=== PATIENT | female | born 1985 | race Caucasian/White ===

== ENCOUNTER 2018-09-16 21:40 | Inpatient (IN) | payer OTHER ==
[2018-09-16] MEDS ORDERED: ELECTROLYTE-148 SOLN 500 ML IV SCH ×2 (22:00→23:00)
[2018-09-16 22:44] VITALS: BMI 35.2
[2018-09-16 22:51] LABS: BASO % 0.5 % (0-2.0); HEMATOCRIT 34.4 % (32.4-45.2); HEMOGLOBIN 11.7 GM/dL (10.7-15.3); LYMPH % 12.2 % (8-40); MCH 29.3 pg (25.7-33.7); MCHC 34.1 g/dl (32.0-36.0); MEAN PLT VOLUME 7.7 fl (7.5-11.1); NEUT % 82.3 % (42.8-82.8); PLATELET COUNT 259 K/MM3 (134-434); RDW 14.4 % (11.6-15.6); WHITE BLOOD COUNT 11.6 K/mm3 (4.0-10.0)
[2018-09-16 22:56] LABS: INR 0.97 (0.83-1.09); PROTHROMBIN TIME (PATIENT) 11.4 SEC (9.7-13.0)
[2018-09-16 22:58] LABS: ACTIVATED PTT 24.2 SECONDS (25.2-36.5)
[2018-09-16 23:01] LABS: ANION GAP 12 MMOL/L (8-16); BLOOD UREA NITROGEN 10 mg/dL (7-18); CALCIUM 9.7 mg/dL (8.5-10.1); CHLORIDE 103 mmol/L (98-107); CO2 21 mmol/L (21-32); CREATININE 0.7 mg/dL (0.55-1.3); GLUCOSE,RANDOM 96 mg/dL (74-106); POTASSIUM 4.1 mmol/L (3.5-5.1); SODIUM 136 mmol/L (136-145)
[2018-09-16] MEDS ORDERED: FENTANYL/BUPIVACAINE/NS/PF - PCEA - 50 ML DISP.SYRIN EP ONE (23:03)
[2018-09-17] MEDS ORDERED: NALOXONE HCL 0.4 MG/ML VIAL IVPUSH PRN (00:17)
[2018-09-17] MEDS ORDERED: FENTANYL/BUPIVACAINE/NS/PF - PCEA - 50 ML DISP.SYRIN EP SCH (00:30)
[2018-09-17] MEDS ORDERED: DEXTROSE 5%-LACTATED RINGERS 1,000 ML IV SCH (00:45)
[2018-09-17] MEDS ORDERED: ELECTROLYTE-148 SOLN 1,000 ML IV SCH ×2 (00:45→01:00)
--- NOTE | 2018-09-17 00:45 | HP ---
Past Medical History - Admission Chief Complaint: Labor pain History of Present Illness: 33 yo @ 39 weeks gestation, EDC 09/12/18, admitted for labor pain. She had one prior and now desires a trial of labor. History Source: Patient Limitations to Obtaining History: No Limitations - Past Medical History ...: 2 ...Para: 1 ...Term: 1 ...: 0 ...Spon : 0 ...Induced : 0 ...Multiple Gestation: 0 ...LMP: 12/12/17 ... Weeks Gestation by Dates: 39.5 ...EDC by Dates: 09/18/18 ...EDC by Sono: 09/12/18 - Past Surgical History Past Surgical History: Yes: Hx Myomectomy: No Hx Transabdominal Cerclage: No - Smoking History Smoking history: Never smoked Have you smoked in the past 12 months: No - Alcohol/Substance Use Hx Alcohol Use: No History of Substance Use: reports: None - Social History Usual Living Arrangement: Yes: With Spouse History of Recent Travel: No Home Medications - Allergies Allergies/Adverse Reactions: Allergies Allergy/AdvReac Type Severity Reaction Status Date / Time Penicillins Allergy Severe Difficulty Verified 09/16/18 22:47 Breathing - Home Medications Home Medications: Ambulatory Orders Vitamins (Sjr) - 1 tab PO DAILY 12/31/13 Family Disease History - Family Disease History Family History: Unremarkable Review of Systems - Review of Systems Constitutional: reports: No Symptoms Eyes: reports: No Symptoms HENT: reports: No Symptoms Neck: reports: No Symptoms Cardiovascular: reports: No Symptoms Respiratory: reports: No Symptoms Gastrointestinal: reports: No Symptoms Genitourinary: reports: Pain Breasts: reports: No Symptoms Reported Musculoskeletal: reports: No Symptoms Integumentary: reports: No Symptoms Neurological: reports: No Symptoms Endocrine: reports: No Symptoms Hematology/Lymphatic: reports: No Symptoms Pain Intensity: 6 Physical Exam - Maternity Vital Signs: Vital Signs Temperature 97.3 F L 09/16/18 22:00 Pulse Rate 102 H 09/17/18 00:00 Respiratory Rate 20 09/17/18 00:00 Blood Pressure 128/74 09/17/18 00:00 O2 Sat by Pulse Oximetry (%) 100 09/17/18 00:00 Constitutional: Yes: Well Nourished Eyes: Yes: Conjunctiva Clear HENT: Yes: Atraumatic Neck: Yes: Supple Cardiovascular: Yes: Regular Rate and Rhythm Lungs: Clear to auscultation Breast(s): Yes: WNL - Abdominal Exam/OB Number of Fetuses: Single Presentation: Vertex - Vaginal Exam/OB Dilatation (cm): 4 Effacement (%): 90 Amniotic Membrane Status: Intact Presentation: Vertex/Position Station: -1 - Physical Exam ...Motor Strength: WNL Psychiatric: Yes: Alert, Oriented - Labs Lab Results: CBC, BMP 09/16/18 22:50 09/16/18 22:08 Assessment/Plan Pain in labor Prior IUP @ 39 weeks Admit for trial of labor as requested by patient. Epidural anesthesia Continue close monitoring
[2018-09-17] MEDS ORDERED: OXYTOCIN 20 UNITS in 0.9% NS 20 UNIT/1,000 ML INFUS.BAG IV ONE (02:24)
[2018-09-17] MEDS: OXYTOCIN 20 UNITS in 0.9% NS 20 UNIT/1,000 ML INFUS.BAG IV SCH ×2 (03:10→04:55)
[2018-09-17] MEDS ORDERED: BENZOCAINE 20% 57 GM BOTTLE TP PRN (03:37)
[2018-09-17] MEDS ORDERED: METHYLERGONOVINE MALEATE 0.2 MG/1 ML AMP IM PRN (03:37)
[2018-09-17] MEDS ORDERED: IBUPROFEN 600 MG TABLET (FP) PO PRN (03:37)
[2018-09-17] MEDS ORDERED: ACETAMINOPHEN 325 MG TABLET (FP) PO PRN (03:37)
[2018-09-17] MEDS ORDERED: BENZOCAINE 28 GM HEMORRHOIDAL OINTMENT TP PRN (03:37)
[2018-09-17] MEDS ORDERED: WITCH HAZEL 50% (TUCKS) 40 PAD/JAR PAD TP PRN (03:37)
[2018-09-17] MEDS ORDERED: BISACODYL 10 MG SUPP.RECT RC PRN (03:37)
--- NOTE | 2018-09-17 03:42 | PN ---
Delivery - Delivery Vaginal Delivery: V-Robbie Type of Anesthesia: Epidural Episiotomy/Laceration: Midline, 3rd degree EBL (cc): 350 Delivery, Single - [place] Feeding Plan Initial Plan: Elected not to breastfeed exclusively throughout hospitalization Remarks - Remarks Remarks: Vaginal after of a live infant boy. Nose / Oropharynx suction @ perineum. Nuchal cord x 1 clamped and cut. Placenta expelled spontaneously intact. Laceration repaired in layers with 2.0 Chromic and 2.0 Biosyn. Mother in stable condition.
[2018-09-17] MEDS: PRENATAL VITAMINS W/ FOLIC ACID TABLET (FP) PO SCH (10:00)
[2018-09-17] MEDS: FERROUS SO4 325 MG TABLET (FP) PO SCH ×2 (10:00→21:31)
[2018-09-18 08:07] LABS: BASO % 0.4 % (0-2.0); EOS % 0.8 % (0-4.5); HEMATOCRIT 28.9 % (32.4-45.2); HEMOGLOBIN 9.6 GM/dL (10.7-15.3); LYMPH % 20.4 % (8-40); MCH 29.1 pg (25.7-33.7); MCHC 33.2 g/dl (32.0-36.0); MEAN CELL VOLUME 87.5 fl (80-96); MEAN PLT VOLUME 7.2 fl (7.5-11.1); MONO % 8.8 % (3.8-10.2); NEUT % 69.6 % (42.8-82.8); PLATELET COUNT 188 K/MM3 (134-434); RDW 14.5 % (11.6-15.6); WHITE BLOOD COUNT 9.8 K/mm3 (4.0-10.0)
[2018-09-18] MEDS: PRENATAL VITAMINS W/ FOLIC ACID TABLET (FP) PO SCH (09:52)
[2018-09-18] MEDS: FERROUS SO4 325 MG TABLET (FP) PO SCH ×2 (09:52→21:23)
[2018-09-18] MEDS ORDERED: SENNOSIDES/DOCUSATE COMBO (SENNA PLUS) TABLET (UD) PO PRN (22:00)
--- NOTE | 2018-09-19 03:22 | DS ---
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 Vital Signs: Vital Signs Temperature 98 F 09/18/18 22:00 Pulse Rate 87 09/18/18 22:00 Respiratory Rate 20 09/18/18 22:00 Blood Pressure 135/72 09/18/18 22:00 O2 Sat by Pulse Oximetry (%) 100 09/17/18 04:15 Constitutional: Yes: Well Nourished, No Distress, Calm Neck: Yes: Supple Cardiovascular: Yes: Regular Rate and Rhythm Respiratory: Yes: Regular Gastrointestinal: Yes: Normal Bowel Sounds ....Post : Yes: Uterus firm, Uterus non-tender Neurological: Yes: Alert, Oriented Psychiatric: Yes: Alert, Oriented Labs: CBC, BMP 09/18/18 06:00 09/16/18 22:08 Delivery - Delivery Vaginal Delivery: V-Robbie Type of Anesthesia: Epidural Episiotomy/Laceration: Midline, 3rd degree EBL (cc): 350 Delivery, Single - Stages of Labor Date 1st Stage Initiatied: 09/16/18 Time 1st Stage Initiated: 03:00 Date 2nd Stage Initiated: 09/17/18 Time 2nd Stage Initiated: 02:35 Date of Delivery: 09/17/18 Time of Delivery: 03:04 Time Placenta Delivered: 03:10 - Condition of Infant Programming Equipment Operator/Surg Rn Present: No Gender: Male Weight: 8 lb Position: Right, OA Total Hours ROM (Hrs/Mins): 3hrs 55min - 1 Minute Total Score: 9 5 Minutes Total Score: 9 - [place] Feeding Plan Initial Plan: Elected not to breastfeed exclusively throughout hospitalization Discharge Summary Reason For Visit: LABOR Condition: Good - Instructions - Home Medications Comprehensive Discharge Medication List: Ambulatory Orders Vitamins (Sjr) - 1 tab PO DAILY 12/31/13
[2018-09-19 08:25] VITALS: BP 122/66; PULSE 73; TEMP 97.9
[2018-09-19] MEDS: FERROUS SO4 325 MG TABLET (FP) PO SCH (09:04)
[2018-09-19] MEDS: PRENATAL VITAMINS W/ FOLIC ACID TABLET (FP) PO SCH (09:04)
== END 2018-09-19 14:50 | disposition home or self-care (01) | DRG 768 ==
LOC: JDEL 21:40 → JLDR 22:00 → J3W 09-17 05:37
PROVIDERS: ADMIT Obstetrics & Gynecology; ATTEND Obstetrics & Gynecology
PROC: 0DQR0ZZ Repair Anal Sphincter, Open Approach (ICD-10-PCS; principal; 2018-09-17)
PROC: 10E0XZZ Delivery of Products of Conception, External Approach (ICD-10-PCS; 2018-09-17)
DX: O70.20 Third degree perineal laceration during delivery, unspecified (principal); Z37.0 Single live birth; Z3A.39 39 weeks gestation of pregnancy
CPT/HCPCS: 36415; 59409; 71046-TC-FY; 80048; 85025; 85610; 85730; 86593; 86850; 86900; 86901